=== PATIENT | male | born 1985 | race African-American/Black ===

== ENCOUNTER 2017-04-13 18:02 | Emergency (ER) | payer OTHER ==
--- NOTE | 2017-04-13 18:36 | ER Document Report ---
ED Respiratory Problem - General Mode of Arrival: Ambulatory Information source: Patient TRAVEL OUTSIDE OF THE [place] IN LAST 30 DAYS: No - General Chief Complaint: Breathing Difficulty Stated Complaint: DIFFICULTY BREATHING Time Seen by Provider: 04/13/17 18:18 Notes: Patient is a 31-year-old male with a history of asthma presents to the emergency department complaining of trouble breathing onset yesterday. Patients associated symptoms include sinus and chest congestion which he states is worse at night, and a productive cough with brown sputum. Patient has an inhaler which he used for a first time yesterday. (KEENA BRADY) - Related Data Allergies/Adverse Reactions: oxycodone HCl [From Percocet] Allergy (Verified 04/13/17 18:03) VOMITING Past Medical History - General Information source: Patient - Social History Smoking Status: Current Every Day Smoker Frequency of alcohol use: Heavy Drug Abuse: None Family History: Reviewed & Not Pertinent Patient has suicidal ideation: No Patient has homicidal ideation: No Pulmonary Medical History: Reports: Hx Asthma, Hx Bronchitis - Immunizations Hx Diphtheria, Pertussis, Tetanus Vaccination: Yes Review of Systems - Review of Systems Constitutional: No symptoms reported EENT: See HPI, Nose congestion Cardiovascular: See HPI, Other - chest congestion Respiratory: See HPI Gastrointestinal: No symptoms reported Genitourinary: No symptoms reported Male Genitourinary: No symptoms reported Musculoskeletal: No symptoms reported Skin: No symptoms reported Hematologic/Lymphatic: No symptoms reported Neurological/Psychological: No symptoms reported -: Yes All other systems reviewed and negative Physical Exam - Vital signs Vitals: Temp Pulse Resp BP Pulse Ox 99.6 F 80 16 144/86 H 98 04/13/17 18:10 04/13/17 18:10 04/13/17 18:10 04/13/17 18:10 04/13/17 18:10 - Notes Notes: GENERAL: Alert, interacts well. No acute distress. HEAD: Normocephalic, atraumatic. EYES: Pupils equal, round, and reactive to light. Extraocular movements intact. ENT: Oral mucosa moist, tongue midline. Apepears to have sinus congestion. NECK: Full range of motion. Supple. Trachea midline. LUNGS: Clear to auscultation bilaterally, no wheezes, rales, or rhonchi. No respiratory distress. HEART: Regular rate and rhythm. No murmurs, gallops, or rubs. ABDOMEN: Soft, non-tender. Non-distended. Bowel sounds present in all 4 quadrants. EXTREMITIES: Moves all 4 extremities spontaneously. NEUROLOGICAL: Alert and oriented x3. Normal speech. PSYCH: Normal affect, normal mood. SKIN: Warm, dry, normal turgor. No rashes or lesions noted. (KEENA BRADY) Course - Re-evaluation Re-evalutation: 04/13/17 19:16 Patient strep and flu are negative. Patient's x-ray shows no acute disease. Will provide azelastine and fluticasone for upper respiratory infection. Cough syrup will also be provided. Return precautions provided (GINO JIMENEZ) - Vital Signs Vital signs: Temp Pulse Resp BP Pulse Ox 99.3 F 74 18 144/67 H 100 04/13/17 19:31 04/13/17 19:31 04/13/17 19:31 04/13/17 19:31 04/13/17 19:31 Discharge - Discharge Clinical Impression: Upper respiratory infection Qualifiers: URI type: unspecified URI Qualified Code(s): J06.9 - Acute upper respiratory infection, unspecified Disposition: HOME, SELF-CARE Instructions: Upper Respiratory Illness ([facility]) Prescriptions: Guaifenesin/Dextromethorphan [Cough Syrup] 118 ml PO QHS #1 bottle Azelastine HCl 205.5 mcg NS BID #1 bottle Chlorphen/Pseudoeph/Ibuprofen [Advil Allergy Sinus Caplet] 1 each PO ASDIR PRN # 1 packet PRN Reason: Fluticasone Propionate 9.9 ml NS BID #1 bottle Forms: Return to Work Scribe Attestation: 04/15/17 03:35 I personally performed the services described documentation, reviewed and edited the documentation which was dictated to describe my presence, and it accurately records my words and actions. (GINO JIMENEZ)
--- NOTE | 2017-04-13 18:47 | RADIOLOGY REPORT (SQ) ---
EXAM DESCRIPTION: CHEST PA/LAT COMPLETED DATE/TIME: 04/13/2017 6:40 pm REASON FOR STUDY: cough, congestion COMPARISON: 01/29/2011 EXAM PARAMETERS: NUMBER OF VIEWS: two views TECHNIQUE: Digital Frontal and Lateral radiographic views of the chest acquired. RADIATION DOSE: NA LIMITATIONS: none FINDINGS: LUNGS AND PLEURA: No opacities, masses or pneumothorax. No pleural effusion. MEDIASTINUM AND HILAR STRUCTURES: No masses or contour abnormalities. HEART AND VASCULAR STRUCTURES: Heart normal size. No evidence for failure. BONES: No acute findings. HARDWARE: None in the chest. OTHER: No other significant finding. IMPRESSION: NO SIGNIFICANT RADIOGRAPHIC FINDING IN THE CHEST. TECHNICAL DOCUMENTATION: JOB ID: [id number] [employer]- All Rights Reserved
[2017-04-13 19:11] LABS: A TYPE INFLUENZA AG NEGATIVE (NEGATIVE); B INFLUENZA AG NEGATIVE (NEGATIVE)
[2017-04-13 19:34] VITALS: BP 144/67
== END 2017-04-13 19:35 | disposition home or self-care (01) ==
LOC: ER 18:02
DX: J06.9 Acute upper respiratory infection, unspecified (principal); R09.81 Nasal congestion; F17.200 Nicotine dependence, unspecified, uncomplicated; Z88.6 Allergy status to analgesic agent
CPT/HCPCS: 71046; 87070; 87804; 87880; 99284

== ENCOUNTER 2017-06-01 09:59 | Emergency (ER) | payer OTHER ==
[2017-06-01] MEDS ORDERED: IBUPROFEN 800 MG TABLET PO ONE (10:46)
--- NOTE | 2017-06-01 10:48 | ER Document Report ---
HPI - HPI Patient complains to provider of: r thigh pain Onset: Other - 2 days Onset/Duration: Persistent Quality of pain: Achy Pain Level: 3 Context: Patient presents complaining of a tender lump to right lateral thigh area. Patient denies any injury to the leg. Patient states that the pain worsens whenever he is standing. Patient states that he was reading up on his symptoms and is concerned about a blood clot in his leg. Associated Symptoms: Other - r thigh pain. denies: Fever Exacerbated by: Standing, Movement Relieved by: Denies Similar symptoms previously: No Recently seen / treated by doctor: No - ROS ROS below otherwise negative: Yes Systems Reviewed and Negative: Yes All other systems reviewed and negative - CONSTITUTIONAL Constitutional: DENIES: Fever - NEURO Neurology: DENIES: Headache - CARDIOVASCULAR Cardiovascular: DENIES: Chest pain - RESPIRATORY Respiratory: DENIES: Trouble Breathing, Coughing - MUSCULOSKELETAL Musculoskeletal: REPORTS: Extremity pain - right thigh. 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 IN LAST 30 DAYS: No - NECK Neck: Normal Inspection - RESPIRATORY Respiratory: Breath Sounds Normal, No Respiratory Distress - CARDIOVASCULAR Cardiovascular: Regular Rate, Regular Rhythm Pulses: Normal: Dorsalis pedis - MUSCULOSKELETAL/EXTREMETIES Musculoskeletal/Extremeties: MAEW, Tender - right lateral thigh tenderness with prominent superifical veins, no obvious edema, normal skin color and temperature - NEURO Level of Consciousness: Awake, Alert, Appropriate Motor/Sensory: No Motor Deficit - DERM Integumentary: Warm, Dry, No Rash Course - Re-evaluation Re-evalutation: 06/01/17 12:03 pt preliminary report neg for dvt. Pt presents with prominent superficial vein to r lateral thigh. Pt encouraged to avoid standing for long periods of time. Patient encouraged to change positions frequently while at work and did discuss possible compression stockings to help with symptoms. - Vital Signs Vital signs: Temp Pulse Resp BP Pulse Ox 97.7 F 70 12 154/84 H 100 06/01/17 10:06 06/01/17 10:06 06/01/17 10:06 06/01/17 10:06 06/01/17 10:06 Discharge - Discharge Clinical Impression: Right thigh pain, Varicose vein of leg Condition: Stable Disposition: HOME, SELF-CARE Instructions: Varicose Veins ([facility]) Additional Instructions: Return immediately for any new or worsening symptoms Followup with your primary care provider, call tomorrow to make a followup appointment Prescriptions: Naproxen [Naprosyn 250 Nmg Tablet] 1 tab PO BID #14 tablet Forms: Smoking Cessation Education, Return to Work Referrals: [facility] [Provider Group] - Follow up as needed [facility] [Provider Group] - Follow up as needed
[2017-06-01] MEDS ORDERED: LIDOCAINE 5% (700 MG) TRANSDERMAL ADH..PATCH TP ONE (12:01)
[2017-06-01 12:31] VITALS: BP 150/89
--- NOTE | 2017-06-01 15:41 | XCELERA REPORT ---
[address] [address] Lower Extremity Venous Evaluation Name: ROSEMARY LAKE Age: 31 yrs Gender: Male : 1985 Patient Status: Emergency Patient Location: ER Study Date: 06/01/2017 10:39 AM Procedure: Color flow and duplex imaging of the veins of the right lower extremity as well as the left Common Femoral vein. Reason For Study: r thigh pain, concern about clot Ordering Physician: KRISTEN CHEEMA Performed By: Maryellen Garrett Right Sided Venous Evaluation Normal vessel filling wall to wall, compression and augmentation as well as Colour flow down to the infrageniculate veins. Left Sided Venous Evaluation The left common femoral vein is fully compressible. Spontaneous and phasic flow is present in the left common femoral vein. Interpretation Summary No duplex evidence of DVT or obstruction in the right lower extremity nor in the left Common Femoral vein. A Popliteal cyst is noted in the right Popliteal fossa. : KRISTEN CHEEMA > Te Justin
== END 2017-06-01 12:31 | disposition home or self-care (01) ==
LOC: ER 09:59
DX: M79.651 Pain in right thigh (principal); I83.811 Varicose veins of right lower extremity with pain; F17.200 Nicotine dependence, unspecified, uncomplicated
CPT/HCPCS: 93971; 99283

== ENCOUNTER 2018-01-26 10:35 | Emergency (ER) | payer OTHER ==
[2018-01-26] MEDS ORDERED: ASPIRIN 81 MG TABLET, CHEWABLE PO ONE (10:57)
--- NOTE | 2018-01-26 10:58 | ER Document Report ---
ED Medical Screen (RME) - General Chief Complaint: Palpitations Stated Complaint: CHEST PAIN Time Seen by Provider: 01/26/18 10:57 Notes: 32 years old male presents today with 2-day history of palpitation on and off with chest pain. Denies any left arm numbness tingling sensation nausea vomiting. Examination by large benign TRAVEL OUTSIDE OF THE [place] IN LAST 30 DAYS: No - Related Data Allergies/Adverse Reactions: oxycodone HCl [From Percocet] Allergy (Verified 01/26/18 10:49) VOMITING Past Medical History - Social History Frequency of alcohol use: Social Drug Abuse: None Pulmonary Medical History: Reports: Hx Asthma, Hx Bronchitis Renal/ Medical History: Denies: Hx Peritoneal Dialysis - Immunizations Hx Diphtheria, Pertussis, Tetanus Vaccination: Yes Physical Exam - Vital signs Vitals: Temp Pulse Resp BP Pulse Ox 98.1 F 76 16 134/85 H 100 01/26/18 10:43 01/26/18 10:43 01/26/18 10:43 01/26/18 10:43 01/26/18 10:43 Course - Vital Signs Vital signs: Temp Pulse Resp BP Pulse Ox 98.1 F 76 16 134/85 H 100 01/26/18 10:43 01/26/18 10:43 01/26/18 10:43 01/26/18 10:43 01/26/18 10:43
--- NOTE | 2018-01-26 11:42 | RADIOLOGY REPORT (SQ) ---
EXAM DESCRIPTION: CHEST SINGLE VIEW COMPLETED DATE/TIME: 01/26/2018 11:33 am REASON FOR STUDY: Chest pain COMPARISON: Chest films 04/13/2017, 05/08/2009 EXAM PARAMETERS: NUMBER OF VIEWS: One view. TECHNIQUE: Single frontal radiographic view of the chest acquired. RADIATION DOSE: NA LIMITATIONS: None. FINDINGS: LUNGS AND PLEURA: No opacities, masses or pneumothorax. No pleural effusion. MEDIASTINUM AND HILAR STRUCTURES: No masses. Contour normal. HEART AND VASCULAR STRUCTURES: Heart normal in size. Normal vasculature. BONES: No acute findings. HARDWARE: None in the chest. OTHER: No other significant finding. IMPRESSION: NO ACUTE RADIOGRAPHIC FINDING IN THE CHEST. TECHNICAL DOCUMENTATION: JOB ID: [id number] [employer]- All Rights Reserved Reading location - IP/workstation name: [email or web address]
--- NOTE | 2018-01-26 12:02 | EKG REPORT ---
SEVERITY:- ABNORMAL ECG - SINUS RHYTHM CONSIDER LEFT VENTRICULAR HYPERTROPHY ST ELEV, PROBABLE NORMAL EARLY REPOL PATTERN : Confirmed by: Ney Rascon 26-Jan-2018 12:01:55
[2018-01-26 12:35] LABS: ABSOLUTE EOSINOPHILS # (AUTO) 0.1 10^3/uL (0.0-0.6); ABSOLUTE LYMPHOCYTES (AUTO) 2.4 10^3/uL (0.5-4.7); ABSOLUTE MONOCYTES (AUTO) 0.6 10^3/uL (0.1-1.4); ABSOLUTE NEUT (AUTO) 1.8 10^3/uL (1.7-8.2); BASOPHILS % (AUTO) 0.7 % (0-2); EOSINOPHILS % (AUTO) 2.5 % (0-6); HEMOGLOBIN 16.6 g/dL (13.5-17.0); LYMPHOCYTES % (AUTO) 47.5 % (13-45); MEAN CORPUSCULAR HEMOGLOBIN 31.1 pg (27.0-33.4); MEAN CORPUSCULAR HGB CONC 33.8 g/dL (32.0-36.0); MEAN CORPUSCULAR VOLUME 92 fl (80-97); MONOCYTES % (AUTO) 12.7 % (3-13); PLATELET COUNT 193 10^3/uL (150-450); RED BLOOD COUNT 5.32 10^6/uL (4.35-5.55); RED CELL DISTRIBUTION WIDTH 13.7 % (11.5-14.0); SEGMENTED NEUTROPHILS % (AUTO) 36.6 % (42-78); TOTAL CELLS COUNTED % (AUTO) 100 %
[2018-01-26 12:53] LABS: URINE AMPHETAMINES SCREEN NEGATIVE; URINE BARBITURATES SCREEN NEGATIVE; URINE BENZODIAZEPINES SCREEN NEGATIVE; URINE COCAINE SCREEN NEGATIVE; URINE MARIJUANA (THC) SCREEN UNCONFIRMED POSITIVE; URINE METHADONE SCREEN NEGATIVE; URINE PHENCYCLIDINE SCREEN NEGATIVE
[2018-01-26 12:55] LABS: ALANINE AMINOTRANSFERASE 34 U/L (21-72); ALBUMIN 4.6 g/dL (3.5-5.0); ALKALINE PHOSPHATASE 68 U/L (38-126); ANION GAP 9 (5-19); ASPARTATE AMINO TRANSFERASE 29 U/L (17-59); BILIRUBIN,DIRECT 0.2 mg/dL (0.0-0.4); BILIRUBIN,TOTAL 0.5 mg/dL (0.2-1.3); BLOOD UREA NITROGEN 13 mg/dL (7-20); CALCIUM 9.5 mg/dL (8.4-10.2); CARBON DIOXIDE 31 mmol/L (22-30); CHLORIDE 102 mmol/L (98-107); CREATINE KINASE 178 U/L (55-170); GLUCOSE 101 mg/dL (75-110); POTASSIUM 4.5 mmol/L (3.6-5.0); SODIUM 141.5 mmol/L (137-145); TOTAL PROTEIN 8.4 g/dL (6.3-8.2)
[2018-01-26 13:12] LABS: CREATINE KINASE MB 0.93 ng/mL (<4.55)
[2018-01-26 13:16] LABS: TROPONIN I 0.038 ng/mL
--- NOTE | 2018-01-26 13:54 | ER Document Report ---
ED General - General Chief Complaint: Palpitations Stated Complaint: CHEST PAIN Time Seen by Provider: 01/26/18 10:57 Notes: 32-year-old male presents to the ER complaining of a history of chest discomfort palpitations and rapid heart rate. Yesterday the patient got up from bed and went to stand up and passed out he felt as if his heart was racing all day. He however did not come to the ER to this morning which he is now feeling better and his heart rate is normal his significant other is a medical communication specialist stated that she had trouble counting his pulse yesterday but today it was good. Patient has no cardiac history he only has a history of hernia. Denies any illicit drug use. He states he is feeling fine now and his symptoms began yesterday. States he had the syncopal episode on the way to the bathroom he got up out of bed to urinate and he did make it to the bathroom door before he passed out he was able to get up and urinate he did not bite his tongue he did have not have urinary incontinence. The patient does not have a history of seizures. Patient laid in bed yesterday just feeling weak and felt his heart racing. Denies any illicit drug use or cocaine. TRAVEL OUTSIDE OF THE [place] IN LAST 30 DAYS: No - Related Data Allergies/Adverse Reactions: oxycodone HCl [From Percocet] Allergy (Verified 01/26/18 10:49) VOMITING Past Medical History - Social History Smoking Status: Current Every Day Smoker Frequency of alcohol use: Social Drug Abuse: None Family History: Reviewed & Not Pertinent Patient has suicidal ideation: No Patient has homicidal ideation: No Pulmonary Medical History: Reports: Hx Asthma, Hx Bronchitis Renal/ Medical History: Denies: Hx Peritoneal Dialysis - Immunizations Hx Diphtheria, Pertussis, Tetanus Vaccination: Yes Review of Systems - Review of Systems Cardiovascular: Chest pain, Palpitations Respiratory: Short of breath Neurological/Psychological: Lost consciousness -: Yes All other systems reviewed and negative Physical Exam - Vital signs Vitals: Temp Pulse Resp BP Pulse Ox 98.1 F 76 16 134/85 H 100 01/26/18 10:43 01/26/18 10:43 01/26/18 10:43 01/26/18 10:43 01/26/18 10:43 - Notes Notes: GENERAL_APPEARANCE: well_nourished, alert, cooperative, no_acute_distress, no_ obvious_discomfort. VITALS: reviewed, see vital signs table. HEAD: no_swelling\tenderness on the head. EYES: PERRL, EOMI, conjunctiva_clear. NOSE: no_nasal_discharge. MOUTH: (-)decreased moisture. THROAT: no_throat_inflammation, no_airway_obstruction. no_lymphadenopathy NECK: supple, no_neck_tenderness, (-)thyromegaly. BACK: no_back_tenderness. CHEST_WALL: no_chest_tenderness. LUNGS: no_wheezing, no_rales, no_rhonchi, (-)accessory muscle use, good air exchange bilateral. HEART: normal_rate, normal_rhythm, normal_S1, normal_S2, (-)S3, (-)S4, no_ murmur, no_rub. ABDOMEN: normal_BS, soft, no_abd_tenderness, (-)guarding, (-)rebound, no_ organomegaly, no_abd_masses. EXTREMITIES: good pulses in all_extremities, no_swelling\tenderness in the extremities, no_edema. SKIN: warm, dry, good_color, no_rash. MENTAL_STATUS: speech_clear, oriented_X_3, anxious_affect, responds_ appropriately to questions. NEURO: Neg Motor or Sensory Deficits on exam, CN 2-12 intact, DTR 2+ symmetric x 4, No cerbellar signs Course - Re-evaluation Re-evalutation: 01/26/18 13:53 32-year-old male who presents after an episode of syncope however this happened yesterday. The patient stated that he laid in bed all day yesterday today he feels fine. Everything today so far has looked well. He is feeling much better his work appears been very reassuring. There is been no signs of any arrhythmia or SVT. I spoke with them at length. If this continues or happens again patient may need follow-up with cardiology to get a Holter monitor. 01/26/18 15:06 The patient has been monitored here and is done well. Workup is been very reassuring. He is comfortable going home if he has any additional episodes to return to the ER immediately. He will follow-up with primary care and if he needs to be referred to cardiology for Holter that is a possibility - Vital Signs Vital signs: Temp Pulse Resp BP Pulse Ox 98.1 F 76 15 138/91 H 100 01/26/18 10:43 01/26/18 10:43 01/26/18 14:01 01/26/18 14:00 01/26/18 14:01 - Laboratory Result Diagrams: 01/26/18 11:55 01/26/18 11:55 Laboratory results interpreted by me: 01/26/18 01/26/18 11:55 11:55 Seg Neutrophils % 36.6 L Lymphocytes % 47.5 H Carbon Dioxide 31 H Creatine Kinase 178 H Total Protein 8.4 H Discharge - Discharge Clinical Impression: Palpitations Syncope Qualifiers: Syncope type: unspecified Qualified Code(s): R55 - Syncope and collapse Condition: Good Disposition: HOME, SELF-CARE Instructions: Palpitations (Irregular or Rapid Heartrate) ([facility]) Additional Instructions: Please come to the hospital immediately if you have any additional episodes of this rapid heart rate. Otherwise follow-up with primary care
[2018-01-26 15:55] VITALS: BP 142/90
== END 2018-01-26 15:55 | disposition home or self-care (01) ==
LOC: ER 10:35
DX: R00.2 Palpitations (principal); R55 Syncope and collapse; R07.9 Chest pain, unspecified; J45.909 Unspecified asthma, uncomplicated; R06.02 Shortness of breath; F17.200 Nicotine dependence, unspecified, uncomplicated; Z88.5 Allergy status to narcotic agent
CPT/HCPCS: 36415; 71045; 80053; 80307; 82550; 82553; 84484; 85025; 93005; 93010; 99285